=== PATIENT | male | born 1960 | race Caucasian/White ===

== ENCOUNTER 2019-05-10 10:27 | Emergency (ER) | payer OTHER ==
[~2019-05-10] VITALS: Ht 175.3 cm; Wt 99.8 kg
== END 2019-05-10 14:20 | disposition home or self-care (01) ==
LOC: ER 10:27
DX: J40 Bronchitis, not specified as acute or chronic (principal)

== ENCOUNTER 2020-03-17 16:04 | Outpatient (CLI) | payer OTHER | END 2020-03-17 16:24 | disposition HB | LOC: RAD 16:04 | DX: M79.644 Pain in right finger(s) (principal); M65.342 Trigger finger, left ring finger ==

== ENCOUNTER 2020-04-19 15:17 | Outpatient (CLI) | payer OTHER | END 2020-04-19 15:58 | disposition home or self-care (01) | LOC: RAD 15:17 | PROVIDERS: ATTEND General Practice | DX: M77.31 Calcaneal spur, right foot (principal); M79.671 Pain in right foot; Z13.89 Encounter for screening for other disorder ==

== ENCOUNTER 2021-05-30 07:38 | Outpatient (CLI) | payer OTHER | END 2021-05-30 07:53 | disposition home or self-care (01) | LOC: SONOGRAMA 07:38 | PROVIDERS: ATTEND General Practice | DX: N39.43 Post-void dribbling (principal) ==

== ENCOUNTER 2021-06-23 11:25 | Outpatient (CLI) | payer OTHER | END 2021-06-23 11:37 | disposition home or self-care (01) | LOC: RAD 11:25 | PROVIDERS: ATTEND Orthopaedic Surgery Sports Medicine | DX: M17.0 Bilateral primary osteoarthritis of knee (principal) ==

== ENCOUNTER 2022-02-08 11:44 | Outpatient (CLI) | payer OTHER | END 2022-02-08 11:56 | disposition home or self-care (01) | LOC: RAD 11:44 | PROVIDERS: ATTEND General Practice | DX: R07.82 Intercostal pain (principal); R07.89 Other chest pain; R05.9 Cough, unspecified; M54.59 Other low back pain; R06.02 Shortness of breath ==

== ENCOUNTER 2022-11-09 15:07 | Outpatient (CLI) | payer OTHER ==
[~2022-11-09 15:07] MED LIST: PROQUIN XR500 MG PO; TORADOL10 MG PO; URETRON D/S TAB1 TAB PO
== END 2022-11-09 15:21 | disposition home or self-care (01) ==
LOC: RAD 15:07
PROVIDERS: ATTEND Orthopaedic Surgery Sports Medicine
DX: Z01.818 Encounter for other preprocedural examination (principal)

== ENCOUNTER 2022-11-22 07:00 | Inpatient (IN) | payer OTHER ==
[~2022-11-22] VITALS: Ht 175.3 cm; Wt 104.3 kg
[2022-11-22] MEDS ORDERED: PREVACID30 MG PO (08:47)
[2022-11-22] MEDS ORDERED: TAMS0.4C PO (08:48)
[2022-11-22] MEDS ORDERED: PROTONIX20 MG PO (08:48)
[2022-11-22 09:31] LABS: URINE APPEARANCE Clear; URINE BILIRRUBIN Negative (NEGATIVE); URINE BLOOD Small; URINE COLOR Yellow; URINE GLUCOSE Negative (NEGATIVE); URINE LEUKOCYTE Negative; URINE NITRATE Negative; URINE PROTEIN Negative (NEGATIVE); URINE UROBILINOGEN 0.2 E.U./dl
[2022-11-22 09:35] LABS: URINE BACTERIA 6.2 uL (0.0-1933); URINE RBC 10.7 uL (0.0-20.8)
[2022-11-22 09:36] LABS: HEMATOCRIT 49.6 % (39.0-48.0); MEAN CELL VOLUME 82.1 fL (80.0-100.00); MEAN CORPUSCULAR HEMOGLOBIN 28.1 pg (27.00-32.0); MEAN CORPUSCULAR HGB CONC 34.3 g/dl (32.0-36.0); PLATELET COUNT 233 K/uL (150-450); RED BLOOD COUNT 6.04 M/uL (4.00-6.00); RED CELL DISTRIBUTION WIDTH 13.9 % (11.5-14.5)
[2022-11-22 10:05] LABS: URINE WBC 1.5 uL (0.0-23.2)
[2022-11-22 10:17] LABS: ALBUMIN 3.9 gm/dL (3.4-5.0); BILIRUBIN TOTAL 0.74 mg/dL (0.3-1.2); CALCIUM 8.9 mg/dL (8.5-10.1); CREATININE SERUM 0.92 mg/dL (0.70-1.30); GFR 84.2; GLOBULINA 3.2 G/DL (2.4-3.5); INR 0.99; PARTIAL THROMBOPLASTIN TIME 28.8 SECONDS (22.0-34.0); POTASSIUM 4.19 mEq/L (3.5-5.1); PROTHROMBIN TIME 10.4 SECONDS (9.0-11.5); TOTAL PROTEIN 7.1 gm/dL (6.4-8.2)
[2022-11-27 16:06] LABS: HEMATOCRIT 46.5 % (39.0-48.0); HEMOGLOBIN 15.9 g/dL (13-16.00); RED BLOOD COUNT 5.65 M/uL (4.00-6.00)
[2022-11-28 06:25] LABS: HEMATOCRIT 41.3 % (39.0-48.0); HEMOGLOBIN 14.2 g/dL (13-16.00); MEAN CELL VOLUME 81.7 fL (80.0-100.00); MEAN CORPUSCULAR HEMOGLOBIN 28.1 pg (27.00-32.0); MEAN CORPUSCULAR HGB CONC 34.3 g/dl (32.0-36.0); PLATELET COUNT 220 K/uL (150-450); RED BLOOD COUNT 5.05 M/uL (4.00-6.00); RED CELL DISTRIBUTION WIDTH 13.8 % (11.5-14.5)
[2022-11-29 06:24] LABS: HEMATOCRIT 37.6 % (39.0-48.0); HEMOGLOBIN 12.8 g/dL (13-16.00); MEAN CELL VOLUME 81.6 fL (80.0-100.00); MEAN CORPUSCULAR HEMOGLOBIN 27.8 pg (27.00-32.0); MEAN CORPUSCULAR HGB CONC 34.1 g/dl (32.0-36.0); PLATELET COUNT 198 K/uL (150-450); RED BLOOD COUNT 4.61 M/uL (4.00-6.00); RED CELL DISTRIBUTION WIDTH 13.7 % (11.5-14.5)
[2022-11-29] MEDS ORDERED: INTEGRA PLUS C1 EACH PO (06:56)
[2022-11-29] MEDS ORDERED: BACTRIM DS TAB1 EACH PO (06:56)
[2022-11-29] MEDS ORDERED: OXYC1TAB9 PO (06:56)
[2022-11-29] MEDS ORDERED: XARELTO10 MG PO (06:56)
== END 2022-11-29 13:57 | DRG 470 ==
LOC: O/R 11-27 05:37 → SURH 11-27 05:37
PROVIDERS: ADMIT Orthopaedic Surgery Sports Medicine; ATTEND Orthopaedic Surgery Sports Medicine
PROC: 0SRC0J9 Replacement of Right Knee Joint with Synthetic Substitute, Cemented, Open Approach (ICD-10-PCS; principal; 2022-11-27 10:30)
DX: M17.11 Unilateral primary osteoarthritis, right knee (principal); Z20.822 Contact with and (suspected) exposure to COVID-19

== ENCOUNTER 2023-01-02 10:52 | Outpatient (CLI) | payer OTHER ==
[~2023-01-02 10:52] MED LIST changes: +BACTRIM DS TAB1 EACH PO; +INTEGRA PLUS C1 EACH PO; +OXYC1TAB9 PO; +PREVACID30 MG PO; +PROTONIX20 MG PO; +TAMS0.4C PO; +XARELTO10 MG PO
== END 2023-01-02 11:01 | disposition home or self-care (01) ==
LOC: RAD 10:52
PROVIDERS: ATTEND Orthopaedic Surgery Sports Medicine
DX: M17.11 Unilateral primary osteoarthritis, right knee (principal)

== ENCOUNTER 2023-04-26 15:22 | Outpatient (CLI) | payer OTHER | END 2023-04-26 15:36 | disposition home or self-care (01) | LOC: RAD 15:22 | PROVIDERS: ATTEND Orthopaedic Surgery Sports Medicine | DX: M17.12 Unilateral primary osteoarthritis, left knee (principal) ==

== ENCOUNTER 2023-05-15 14:01 | Outpatient (CLI) | payer OTHER | END 2023-05-15 14:11 | disposition home or self-care (01) | LOC: RAD 14:01 | PROVIDERS: ATTEND Orthopaedic Surgery Sports Medicine | DX: M17.11 Unilateral primary osteoarthritis, right knee (principal) ==

== ENCOUNTER 2023-12-17 07:03 | Outpatient (CLI) | payer OTHER | END 2023-12-17 07:09 | disposition home or self-care (01) | LOC: SONOGRAMA 07:03 | PROVIDERS: ATTEND General Practice | DX: L29.9 Pruritus, unspecified (principal); R21 Rash and other nonspecific skin eruption ==

== ENCOUNTER 2024-12-15 12:37 | Outpatient (CLI) | payer OTHER ==
[~2024-12-15 12:37] MED LIST changes: +ETODOLAC300 MG PO
== END 2024-12-15 12:46 | disposition home or self-care (01) ==
LOC: SONOGRAMA 12:37
PROVIDERS: ATTEND Specialist
DX: N40.0 Benign prostatic hyperplasia without lower urinary tract symptoms (principal); R73.03 Prediabetes; R22.2 Localized swelling, mass and lump, trunk; Z12.5 Encounter for screening for malignant neoplasm of prostate; Z12.11 Encounter for screening for malignant neoplasm of colon

== ENCOUNTER 2024-12-19 09:33 | Outpatient (CLI) | payer OTHER ==
[2024-12-19 11:09] LABS: CREATININE SERUM 0.7 mg/dL (0.70-1.30); GFR 114.27
== END 2024-12-19 09:41 | disposition home or self-care (01) ==
LOC: LAB 09:33
PROVIDERS: ATTEND Radiology Diagnostic Radiology
DX: R22.2 Localized swelling, mass and lump, trunk (principal)

== ENCOUNTER → 2024-12-19 | Outpatient (CLI) | payer OTHER | END | disposition home or self-care (01) | LOC: TOM 10:33 | PROVIDERS: ATTEND Surgery | DX: R22.2 Localized swelling, mass and lump, trunk (principal) ==